=== PATIENT | female | born 1945 | race Asian ===

== ENCOUNTER 2023-11-20 16:13 | Inpatient (IN) ==
[2023-11-20] MEDS ORDERED: Calcium CHLORIDE 10% SYRINGE 1 GM/10 ML ONE (16:18)
[2023-11-20] MEDS: Calcium CHLORIDE 10% SYRINGE 1 GM/10 ML IV ONE (16:20)
[2023-11-20] MEDS: Lactated Ringers 1000 ml BAG 1,000 ML IV ONE ×2 (16:30)
[2023-11-20 16:36] LABS: ABS Basophils 0.1 10^3/uL (0.0-0.1); ABS Lymphocytes 4.9 10^3/uL (1.0-4.8); ABS Monocytes 0.7 10^3/uL (0.0-0.9); ABS Neutrophils 14.3 10^3/uL (1.5-7.6); ABS Nucleated RBC 0.01 10^3/ul; Eosinophil % 0.2 %; Hematocrit 29.8 % (35-45); Hemoglobin 9.8 g/dL (11.5-14.3); Lymphocyte % 24.7 %; Mean Corpuscular Hemoglobin 30.5 pg (27-33); Mean Corpuscular Hgb Conc 32.9 g/dL (31-36); Mean Corpuscular Volume 92.7 fL (80-97); Mean Platelet Volume 8.2 fL (7.5-11.2); Platelet Count 325 10^3/uL (150-450); Red Blood Count 3.21 10^6/uL (3.63-4.92); Red Cell Distribution Width 15.5 % (12-17)
[2023-11-20] MEDS ORDERED: Rocuronium 50 mg VIAL 10 mg/ml 5 ml VIAL (50 mg) ONE (16:53)
[2023-11-20] MEDS ORDERED: Propofol 10 mg/ml 100 ML BTL 1,000 MG/100 ML BTL ONE (16:54)
[2023-11-20 17:02] LABS: Albumin 3.8 g/dL (3.2-5.2); C Reactive Protein 1.16 mg/L (<8.01); Calcium 15.3 mg/dL (8.6-10.3); Creatinine, Serum 3.21 mg/dL (0.51-0.95); Globulin 3.8 g/dL (2-4); Magnesium 2.3 mg/dL (1.9-2.7); Phosphorus 8.2 mg/dL (2.5-5.0); Potassium 8.4 mmol/L (3.5-5.0); Total Bilirubin 0.4 mg/dL (0.2-1.0); Total Protein 7.6 g/dL (6.4-8.9); eGFR CKD-EPI 14.4 (>60)
[2023-11-20] MEDS ORDERED: Sodium Bicarbonate 8.4% SYR 50 ml SYRINGE ONE (17:05)
[2023-11-20] MEDS: Sodium Bicarbonate 8.4% SYR 50 ml SYRINGE IV ONE ×2 (17:06→17:08)
[2023-11-20] MEDS: NS 0.9% 1000 ml BAG 2,000 ML IV ONE (17:30)
[2023-11-20 18:17] LABS: High Sensitivity Troponin 1 Hr 10 pg/mL (<15)
[2023-11-20 18:55] LABS: Urine Appearance Clear; Urine Bilirubin Negative (Negative); Urine Blood 2+ (Negative); Urine Color Colorless; Urine Glucose 3+ (>=300 mg/dL) (Negative); Urine Ketones Negative (Negative); Urine Nitrite Negative (Negative); Urine Protein Trace (Negative); Urine Specific Gravity 1.008 (1.002-1.030); Urine Urobilinogen Negative (Negative); Urine pH 5.5 (5.0-8.0)
[2023-11-20 19:07] LABS: Urine Bacteria 2+ /HPF (Absent); Urine Red Blood Cell 3+(>10/hpf) /HPF (0-Trace); Urine White Blood Cell 3+(>20/hpf) /HPF (0-Trace)
[2023-11-20] MEDS: Propofol 10 mg/ml 100 ML BTL 1,000 MG/100 ML BTL IV SCH (19:29)
[2023-11-20 19:35] LABS: Anion Gap 11 mmol/L (2-16); Blood Urea Nitrogen 68 mg/dL (6-24); CO2 Carbon Dioxide 12 mmol/L (22-32); Calcium 9.3 mg/dL (8.6-10.3); Chloride 111 mmol/L (101-111); Creatinine, Serum 2.34 mg/dL (0.51-0.95); Glucose 306 mg/dL (70-100); Sodium 134 mmol/L (135-145)
[2023-11-20] MEDS: SODIUM ZIRCONIUM CYCLOSILICATE 10 GM PACKET PO ONE (19:55)
[2023-11-20] MEDS: NS 0.9% 1000 ml BAG 1,000 ML IV SCH (20:03)
[2023-11-20] MEDS: Sodium Polystyrene ORAL.SUSP 15 GM/60 ML BTL PO ONE (20:06)
[2023-11-20 20:38] LABS: PCO2 Arterial 38 mmHg (35-45); PO2 Arterial 131 mmHg (80-100)
[2023-11-20] MEDS: Sodium Bicarb 8.4% Vial 50 ML 150 MEQ in D5W 1000 ml BAG 850 ML IV SCH (21:11)
[2023-11-20 21:22] LABS: Calcium 9.8 mg/dL (8.6-10.3); Creatinine, Serum 2.35 mg/dL (0.51-0.95); Magnesium 1.8 mg/dL (1.9-2.7); Phosphorus 5.9 mg/dL (2.5-5.0); eGFR CKD-EPI 20.9 (>60)
[2023-11-20] MEDS ORDERED: Dextrose 50% Syringe 50 ml 25 GM/50 ML SYRINGE IV PUSH PRN (21:25)
[2023-11-20 22:31] LABS: PCO2 Arterial 29 mmHg (35-45); PO2 Arterial 117 mmHg (80-100)
[2023-11-20] MEDS: Piperacillin/Tazobac 3.375 BAG 3.375 GM/100 ML BAG IV ONE (23:13)
[2023-11-20] MEDS: Chlorhexidine MOUTHWASH 0.12% 15 ML UDC TOPICAL SCH (23:17)
[2023-11-20] MEDS: Furosemide 40 mg/4 ml IV VIAL IV SLOW PU ONE (23:52)
[2023-11-21] MEDS: Insulin Infusion 100unit/100mL 100 UNIT/100 ML BAG IV SCH (01:11)
[2023-11-21] MEDS: fentaNYL 100 mcg/2 ml 50 MCG/ML VIAL IV SLOW PU PRN (01:27)
[2023-11-21] MEDS: fentaNYL 100 mcg/2 ml 50 MCG/ML VIAL ONE (01:28)
[2023-11-21] MEDS ORDERED: Zosyn per Pharmacy NOTE FOLLOW UP SCH (02:00)
[2023-11-21] MEDS: Norepinephrine 4 MG/250mL NS 4,000 MCG/250 ML BAG IV SCH (02:57)
[2023-11-21 02:59] LABS: PCO2 Arterial 30 mmHg (35-45); PO2 Arterial 179 mmHg (80-100)
[2023-11-21 03:04] LABS: Calcium 9.2 mg/dL (8.6-10.3); Creatinine, Serum 2.28 mg/dL (0.51-0.95); Magnesium 1.6 mg/dL (1.9-2.7); Potassium 5.7 mmol/L (3.5-5.0); eGFR CKD-EPI 21.7 (>60)
[2023-11-21] MEDS: Norepinephrine 4 MG/250mL D5W 0 MCG/0 ML BAG IV ONE (03:15)
[2023-11-21] MEDS: NORMOSOL-R pH 7.4 1000 mL BAG 1,000 ML IV SCH (03:20)
[2023-11-21] MEDS: Magnesium Sulfate 2 gm BAG 2 GM/50 ML BAG IVPB ONE (03:25)
[2023-11-21 03:33] LABS: Glucose Confirmatory 490 mg/dL (70-100)
[2023-11-21] MEDS: ZOSYN 3.375 GM Q12H per EXTENDED INFUSION IV SCH (03:35)
[2023-11-21 04:32] LABS: Glucose Confirmatory 434 mg/dL (70-100)
[2023-11-21 06:26] LABS: PCO2 Arterial 26 mmHg (35-45); PO2 Arterial 175 mmHg (80-100)
[2023-11-21 06:33] LABS: ABS Basophils 0.1 10^3/uL (0.0-0.1); ABS Monocytes 1.3 10^3/uL (0.0-0.9); ABS Neutrophils 11.2 10^3/uL (1.5-7.6); ABS Nucleated RBC 0.02 10^3/ul; Eosinophil % 0.1 %; Hematocrit 27.8 % (35-45); Hemoglobin 9.7 g/dL (11.5-14.3); Lymphocyte % 19.1 %; Mean Corpuscular Hemoglobin 30.7 pg (27-33); Mean Corpuscular Hgb Conc 34.8 g/dL (31-36); Mean Corpuscular Volume 88.1 fL (80-97); Mean Platelet Volume 7.8 fL (7.5-11.2); Nucleated Red Blood Cells % 0.1 %/100WBC (0.0-0.8); Platelet Count 268 10^3/uL (150-450); Red Blood Count 3.15 10^6/uL (3.63-4.92); Red Cell Distribution Width 14.6 % (12-17); White Blood Count 15.5 10^3/uL (3.8-11.8)
[2023-11-21 06:46] LABS: INR 1.07 (0.83-1.13)
[2023-11-21] MEDS: Heparin 5000 UNITS/ML 1 mL VIAL SUBCUT SCH (08:14)
[2023-11-21] MEDS: Famotidine IV 10 MG/ML 2 ml VIAL (20 mg) IV SLOW PU SCH (08:14)
[2023-11-21 08:37] LABS: Albumin 3.4 g/dL (3.2-5.2); Albumin/Globulin Ratio 1.1 (1-3); Calcium 9.5 mg/dL (8.6-10.3); Globulin 3.1 g/dL (2-4); Magnesium 2.9 mg/dL (1.9-2.7); Phosphorus 3.4 mg/dL (2.5-5.0); Potassium 4.5 mmol/L (3.5-5.0); Total Bilirubin 0.5 mg/dL (0.2-1.0); Total Protein 6.5 g/dL (6.4-8.9)
[2023-11-21 09:00] LABS: Creatinine, Serum 2.11 mg/dL (0.51-0.95); eGFR CKD-EPI 23.8 (>60)
[2023-11-21] MEDS ORDERED: Sulfur Hexaflouride MICROSPHR 25 MG VIAL ONE (09:03)
[2023-11-21] MEDS: Sulfur Hexaflouride MICROSPHR 25 MG VIAL IV ONE (09:59)
[2023-11-21 13:23] LABS: Calcium 9.1 mg/dL (8.6-10.3); Creatinine, Serum 1.95 mg/dL (0.51-0.95); Magnesium 2.4 mg/dL (1.9-2.7); Potassium 4.4 mmol/L (3.5-5.0); eGFR CKD-EPI 26.2 (>60)
[2023-11-21 15:49] LABS: Uric Acid 5.8 mg/dL (2.3-6.6)
[2023-11-22 04:00] LABS: ABS Lymphocytes 2.5 10^3/uL (1.0-4.8); ABS Monocytes 0.5 10^3/uL (0.0-0.9); ABS Neutrophils 4.5 10^3/uL (1.5-7.6); Eosinophil % 0.2 %; Hematocrit 23.4 % (35-45); Hemoglobin 8.3 g/dL (11.5-14.3); Lymphocyte % 32.9 %; Mean Corpuscular Hemoglobin 31.1 pg (27-33); Mean Corpuscular Hgb Conc 35.2 g/dL (31-36); Mean Corpuscular Volume 88.1 fL (80-97); Platelet Count 171 10^3/uL (150-450); Red Blood Count 2.66 10^6/uL (3.63-4.92); Red Cell Distribution Width 15.1 % (12-17); White Blood Count 7.5 10^3/uL (3.8-11.8)
[2023-11-22 04:47] LABS: Albumin/Globulin Ratio 1.1 (1-3); Creatinine, Serum 1.6 mg/dL (0.51-0.95); Globulin 2.8 g/dL (2-4); Phosphorus 3.5 mg/dL (2.5-5.0); Total Bilirubin 0.4 mg/dL (0.2-1.0); Total Protein 5.8 g/dL (6.4-8.9); eGFR CKD-EPI 33.2 (>60)
[2023-11-22 11:28] LABS: PCO2 Arterial 35 mmHg (35-45); PO2 Arterial 149 mmHg (80-100)
[2023-11-22] MEDS: Famotidine IV 10 MG/ML 2 ml VIAL (20 mg) IV SLOW PU SCH (19:59)
[2023-11-23 05:06] LABS: ABS Eosinophils 0.1 10^3/uL (0.0-0.5); ABS Lymphocytes 2.6 10^3/uL (1.0-4.8); ABS Monocytes 0.5 10^3/uL (0.0-0.9); ABS Neutrophils 3.3 10^3/uL (1.5-7.6); Hematocrit 25.1 % (35-45); Hemoglobin 8.5 g/dL (11.5-14.3); Lymphocyte % 39.7 %; Mean Corpuscular Hemoglobin 30.2 pg (27-33); Mean Corpuscular Hgb Conc 33.8 g/dL (31-36); Mean Corpuscular Volume 89.5 fL (80-97); Platelet Count 196 10^3/uL (150-450); Red Cell Distribution Width 14.8 % (12-17); White Blood Count 6.4 10^3/uL (3.8-11.8)
[2023-11-23 05:54] LABS: Albumin 3.2 g/dL (3.2-5.2); Calcium 9.1 mg/dL (8.6-10.3); Creatinine, Serum 1.31 mg/dL (0.51-0.95); Globulin 3.2 g/dL (2-4); Magnesium 1.7 mg/dL (1.9-2.7); Phosphorus 3.6 mg/dL (2.5-5.0); Potassium 3.7 mmol/L (3.5-5.0); Total Bilirubin 0.6 mg/dL (0.2-1.0); Total Protein 6.4 g/dL (6.4-8.9); eGFR CKD-EPI 42.2 (>60)
[2023-11-23] MEDS: Magnesium Sulfate 2 gm BAG 2 GM/50 ML BAG IVPB ONE (11:39)
[2023-11-23] MEDS: ZOSYN 3.375 GM Q8H per EXTENDED INFUSION IV SCH (17:46)
[2023-11-24 02:30] LABS: Anion Gap 11 mmol/L (2-16); Blood Urea Nitrogen 16 mg/dL (6-24); CO2 Carbon Dioxide 24 mmol/L (22-32); Calcium 8.6 mg/dL (8.6-10.3); Chloride 106 mmol/L (101-111); Creatinine, Serum 1.16 mg/dL (0.51-0.95); Glucose 178 mg/dL (70-100); Sodium 141 mmol/L (135-145); eGFR CKD-EPI 48.9 (>60)
[2023-11-24 03:34] LABS: Magnesium 2.2 mg/dL (1.9-2.7); Potassium Redraw 3.5 mmol/L (3.5-5.0)
[2023-11-24 04:27] LABS: ABS Eosinophils 0.1 10^3/uL (0.0-0.5); ABS Lymphocytes 2.7 10^3/uL (1.0-4.8); ABS Monocytes 0.4 10^3/uL (0.0-0.9); ABS Nucleated RBC 0.01 10^3/ul; Eosinophil % 2.1 %; Hematocrit 24.5 % (35-45); Hemoglobin 8.5 g/dL (11.5-14.3); Lymphocyte % 51.1 %; Mean Corpuscular Hemoglobin 31.1 pg (27-33); Mean Corpuscular Hgb Conc 34.8 g/dL (31-36); Mean Corpuscular Volume 89.5 fL (80-97); Mean Platelet Volume 7.8 fL (7.5-11.2); Nucleated Red Blood Cells % 0.2 %/100WBC (0.0-0.8); Platelet Count 195 10^3/uL (150-450); Red Blood Count 2.73 10^6/uL (3.63-4.92); Red Cell Distribution Width 14.4 % (12-17); White Blood Count 5.2 10^3/uL (3.8-11.8)
[2023-11-24 05:01] LABS: Calcium 8.6 mg/dL (8.6-10.3); Creatinine, Serum 1.15 mg/dL (0.51-0.95); Magnesium 2.2 mg/dL (1.9-2.7); Potassium 3.4 mmol/L (3.5-5.0); eGFR CKD-EPI 49.4 (>60)
[2023-11-24] MEDS: Potassium Chlor 20 meq TAB.ER PO ONE ×2 (06:19→08:54)
[2023-11-24 17:10] VITALS: BP 172/108
== END 2023-11-24 19:24 | disposition home or self-care (01) | DRG 143 ==
LOC: ED 16:13 → EDHOLD 18:56 → ICU 19:30
PROVIDERS: ADMIT Internal Medicine Pulmonary Disease; ATTEND Internal Medicine Pulmonary Disease